=== PATIENT | female | born 1955 ===

== ENCOUNTER 2022-04-01 04:58 | Inpatient (IN) | payer OTHER ==
[~2022-04-01] VITALS: Ht 157.5 cm; Wt 48.1 kg
[~2022-04-01 04:58] MED LIST: ADULT LOW DOSE81 M1 PO; FENOFIBRATE145 MG PO; FORTEO2.4 ML; HUMALOG100 UNIT/2; LANTUS SOL100 UNIT/1; LIPITOR40 MG PO; LOSARTAN POTASS50 MG PO; METFORMIN HCL1000 M2 PO; RYBELSUS3 MG PO; VITAMIN C100 MG PO
== END 2022-04-03 22:45 | disposition home or self-care (01) | DRG 416 ==
LOC: CIR.AMB 04:58 → SURH 12:34 → O/R 12:34 → SURH 13:24
PROVIDERS: ADMIT Specialist; ATTEND Specialist
PROC: 0FJ44ZZ Inspection of Gallbladder, Percutaneous Endoscopic Approach (ICD-10-PCS; 2022-04-01)
PROC: 0FT40ZZ Resection of Gallbladder, Open Approach (ICD-10-PCS; principal; 2022-04-01 07:00)
DX: K80.12 Calculus of gallbladder with acute and chronic cholecystitis without obstruction (principal); N73.6 Female pelvic peritoneal adhesions (postinfective); Z53.31 Laparoscopic surgical procedure converted to open procedure; I11.9 Hypertensive heart disease without heart failure; I25.10 Atherosclerotic heart disease of native coronary artery without angina pectoris; E11.9 Type 2 diabetes mellitus without complications; E78.5 Hyperlipidemia, unspecified